=== PATIENT | male | born 1970 | race Caucasian/White ===

== ENCOUNTER 2016-06-05 15:13 | Emergency (ER) | payer OTHER ==
[~2016-06-05] VITALS: Ht 165.1 cm; Wt 63.0 kg
[2016-06-05 15:19] VITALS: BP 122/77; PULSE 70; RESP 16; TEMP 98.3; O2SAT 98
[2016-06-05 16:09] LABS: BLOOD, URINE NEG (NEG); GLUCOSE,URINE NEG (NEG); KETONE, URINE TRACE mg/dL (NEG); NITRITE,URINE NEG (NEG)
[2016-06-05 16:12] LABS: METHOD OF COLLECTION CLEAN CATCH; URINE COLOR YELLOW (YELLW/STRAW)
[2016-06-05] MEDS ORDERED: KETOROLAC TROMETHAMINE 30 MG/ML (IVP) VIAL IV PUSH ONE (16:15)
[2016-06-05] MEDS ORDERED: SODIUM CHLOR 0.9% 1000 ML INJ 1,000 ML IV ONE (16:15)
[2016-06-05] MEDS ORDERED: ONDANSETRON HCL 4 MG/2 ML VIAL IV PUSH ONE (16:15)
[2016-06-05 16:20] VITALS: RESP 16; O2SAT 99
[2016-06-05] MEDS: SODIUM CHLORIDE 0.9% FLUSH 5 ML FLUSH IVF PRN ×2 (16:25→17:01)
[2016-06-05] MEDS ORDERED: MULT1TAB84 PO (16:28)
[2016-06-05 16:34] LABS: AUTOMATED NEUTROPHIL # 11.7 TH/MM3 (1.8-7.7); BASOPHIL % 0.2 % (0.0-2.0); EOSINOPHIL # 0.1 TH/MM3 (0-0.4); EOSINOPHIL % 0.4 % (0.0-4.0); HEMATOCRIT 41.5 % (39.0-51.0); LYMPH % 4.4 % (9.0-44.0); LYMPHOCYTE # 0.6 TH/MM3 (1.0-4.8); MEAN CELL VOLUME 90.3 FL (80.0-100.0); MEAN CORPUSCULAR HEMOGLOBIN 30.2 PG (27.0-34.0); MEAN CORPUSCULAR HGB CONC 33.4 % (32.0-36.0); MONO % 4.5 % (0.0-8.0); NEUT % 90.5 % (16.0-70.0); PLATELET COUNT 225 TH/MM3 (150-450); RED BLOOD COUNT 4.59 MIL/MM3 (4.50-5.90); RED CELL DISTRIBUTION WIDTH 12.8 % (11.6-17.2)
[2016-06-05 16:42] LABS: HEMO FLAGS DIFF FINAL
[2016-06-05 16:49] LABS: POTASSIUM 3.8 MEQ/L (3.5-5.1)
--- NOTE | 2016-06-05 16:51 | RADHPO ---
EXAM DATE/TIME: 06/05/2016 16:27 [place] COMPARISON: No previous studies available for comparison. INDICATIONS : Left flank pain today with nausea and vomiting. ORAL CONTRAST: No oral contrast ingested. RADIATION DOSE: 6.86 CTDIvol (mGy) MEDICAL HISTORY : None SURGICAL HISTORY : Appendectomy. ENCOUNTER: Initial ACUITY: 1 day PAIN SCALE: 9/10 LOCATION: Left flank abdomen TECHNIQUE: Volumetric scanning of the abdomen and pelvis was performed. Using automated exposure control and adjustment of the mA and/or kV according to patient size, radiation dose was kept as low as reasonably achievable to obtain optimal diagnostic quality images. FINDINGS: LOWER LUNGS: The visualized lower lungs are clear. LIVER: Homogeneous density without lesion. There is no dilation of the biliary tree. No calcifi ed gallstones. Gallbladder seen is a luminal structure without wall thickening SPLEEN: Normal size without lesion. PANCREAS: Within normal limits. KIDNEYS: Normal in size and shape. There is no mass. There is a 6 x 3 mm calculus in the left ur eter at level of L3-4 with secondary obstructive uropathy, hydroureter and hydronephrosis. ADRENAL GLANDS: Within normal limits. VASCULAR: There is no aortic aneurysm. BOWEL/MESENTERY: The stomach, small bowel, and colon demonstrate no acute abnormality. There is no free intraperitoneal air or fluid. ABDOMINAL WALL: Within normal limits. RETROPERITONEUM: There is no lymphadenopathy. BLADDER: No wall thickening or mass. REPRODUCTIVE: Within normal limits. INGUINAL: There is no lymphadenopathy or hernia. MUSCULOSKELETAL: Within normal limits for patient age. CONCLUSION: 6x3 mm left ureteral calculus level L3-4 with secondary hydronephrosis and ureter Edi Almanza MD on June 05, 2016 at 16:46 Board Certified Radiologist. This report was verified electronically.
[2016-06-05 16:52] LABS: BICARBONATE 22.9 MEQ/L (21.0-32.0)
[2016-06-05] MEDS ORDERED: MORPHINE SULFATE 8 MG/ML INJ IV PUSH ONE (17:00)
[2016-06-05 17:15] VITALS: BP 108/57; PULSE 90; RESP 16; O2SAT 98
[2016-06-05 17:21] LABS: RBC, URINE 0-3 /hpf (0-3); SQUAMOUS EPITHELIAL CELL URINE 0-5 /hpf (0-5)
[2016-06-05 17:23] LABS: CALCIUM OXALATE CRYSTALS,URINE MANY /hpf; COMMENT (UR) CULT NOT INDICATED; CULTURE IF INDICATED CULT NOT INDICATED
[2016-06-05] MEDS ORDERED: PERC5TAB12 PO (17:26)
[2016-06-05] MEDS ORDERED: TAMS5CAP PO (17:26)
--- NOTE | 2016-06-05 17:26 | PD ---
HPI Chief Complaint: Flank/Kidney Pain Time Seen by Provider: 15:50 Travel History International Travel<30 days: No Contact w/Intl Traveler<30days: No Traveled to known affect area: No History of Present Illness HPI 46yo M with no significant PMH presents to the ED with c/o left flank pain since 10am today. Pt is severe, intermittent and worst with movement. +Nausea and vomiting. States pain is sharp and worst with movement. Denies any fever, chest pain, sob, penile discharge or rash or testicular pain. PFSH Past Medical History Medical History: Denies Significant Hx Tetanus Vaccination: < 5 Years Influenza Vaccination: No Past Surgical History Appendectomy: Yes Social History Alcohol Use: No Tobacco Use: No Substance Use: No Allergies-Medications (Allergen,Severity, Reaction): Coded Allergies: No Known Allergies (Verified , 06/05/16) Reported Meds & Prescriptions Reported Meds & Active Scripts Active Reported Multivitamin Adults (Multiple Vitamins W/ Minerals) 1 Tab 1 Tab PO DAILY Review of Systems Except as stated in HPI: all other systems reviewed are Neg Physical Exam Narrative GENERAL: 46yo M in moderate distress. SKIN: Warm and dry. HEAD: Atraumatic. Normocephalic. EYES: Pupils equal and round. No scleral icterus. No injection or drainage. ENT: No nasal bleeding or discharge. Mucous membranes pink and moist. NECK: Trachea midline. No JVD. CARDIOVASCULAR: Regular rate and rhythm. No murmur appreciated. RESPIRATORY: No accessory muscle use. Clear to auscultation. Breath sounds equal bilaterally. GASTROINTESTINAL: Abdomen soft, non-tender, nondistended. No rebound tenderness or guarding. : No testicular ttp. No penile discharge. BACK: +TTP left flank. MUSCULOSKELETAL: No obvious deformities. No clubbing. No cyanosis. No edema. NEUROLOGICAL: Awake and alert. No obvious cranial nerve deficits. Motor grossly within normal limits. Normal speech. PSYCHIATRIC: Appropriate mood and affect; insight and judgment normal. Data Data Last Documented VS Vital Signs Date Time Temp Pulse Resp B/P Pulse Ox O2 Delivery O2 Flow Rate FiO2 06/05/16 17:00 16 06/05/16 16:20 99 Room Air 06/05/16 16:00 75 06/05/16 15:19 98.3 122/77 Orders Urinalysis - C+S If Indicated (06/05/16 15:17) Basic Metabolic Panel (Bmp) (06/05/16 16:13) Complete Blood Count With Diff (06/05/16 16:13) Lipase (06/05/16 16:13) Ct Abd/Pel W/O Iv Contrast (06/05/16 16:13) Iv Access Insert/Monitor (06/05/16 16:13) Ecg Monitoring (06/05/16 16:13) Oximetry (06/05/16 16:13) Sodium Chloride 0.9% Flush (Ns Flush) (06/05/16 16:15) Ondansetron Inj (Zofran Inj) (06/05/16 16:15) Sodium Chlor 0.9% 1000 Ml Inj (Ns 1000 M (06/05/16 16:15) Ketorolac Inj (Toradol Inj) (06/05/16 16:15) Morphine Inj (Morphine Inj) (06/05/16 17:00) Labs Laboratory Tests Test 06/05/16 06/05/16 15:15 16:05 Urine pH 6.0 Urine Protein NEG mg/dL Urine Glucose (UA) NEG mg/dL Urine Ketones TRACE mg/dL Urine Occult Blood NEG Urine Nitrite NEG Urine Bilirubin NEG Urine Leukocyte Esterase NEG White Blood Count 13.0 TH/MM3 Red Blood Count 4.59 MIL/MM3 Hemoglobin 13.9 GM/DL Hematocrit 41.5 % Mean Corpuscular Volume 90.3 FL Mean Corpuscular Hemoglobin 30.2 PG Mean Corpuscular Hemoglobin 33.4 % Concent Red Cell Distribution Width 12.8 % Platelet Count 225 TH/MM3 Mean Platelet Volume 10.1 FL Neutrophils (%) (Auto) 90.5 % Lymphocytes (%) (Auto) 4.4 % Monocytes (%) (Auto) 4.5 % Eosinophils (%) (Auto) 0.4 % Basophils (%) (Auto) 0.2 % Neutrophils # (Auto) 11.7 TH/MM3 Lymphocytes # (Auto) 0.6 TH/MM3 Monocytes # (Auto) 0.6 TH/MM3 Eosinophils # (Auto) 0.1 TH/MM3 Basophils # (Auto) 0.0 TH/MM3 CBC Comment DIFF FINAL Differential Comment Sodium Level 139 MEQ/L Potassium Level 3.8 MEQ/L Chloride Level 104 MEQ/L Carbon Dioxide Level 22.9 MEQ/L Anion Gap 12 MEQ/L Blood Urea Nitrogen 22 MG/DL Creatinine 1.20 MG/DL Estimat Glomerular Filtration 65 ML/MIN Rate Random Glucose 134 MG/DL Calcium Level 8.8 MG/DL Lipase 176 U/L MDM Medical Decision Making Medical Screen Exam Complete: Yes Emergency Medical Condition: Yes Interpretation(s) Laboratory Tests Test 06/05/16 06/05/16 15:15 16:05 Urine pH 6.0 (5.0-8.5) Urine Protein NEG mg/dL (NEG-TRACE) Urine Glucose (UA) NEG mg/dL (NEG) Urine Ketones TRACE mg/dL (NEG) Urine Occult Blood NEG (NEG) Urine Nitrite NEG (NEG) Urine Bilirubin NEG (NEG) Urine Leukocyte Esterase NEG (NEG) White Blood Count 13.0 TH/MM3 (4.0-11.0) Red Blood Count 4.59 MIL/MM3 (4.50-5.90) Hemoglobin 13.9 GM/DL (13.0-17.0) Hematocrit 41.5 % (39.0-51.0) Mean Corpuscular Volume 90.3 FL (80.0-100.0) Mean Corpuscular Hemoglobin 30.2 PG (27.0-34.0) Mean Corpuscular Hemoglobin 33.4 % Concent (32.0-36.0) Red Cell Distribution Width 12.8 % (11.6-17.2) Platelet Count 225 TH/MM3 (150-450) Mean Platelet Volume 10.1 FL (7.0-11.0) Neutrophils (%) (Auto) 90.5 % (16.0-70.0) Lymphocytes (%) (Auto) 4.4 % (9.0-44.0) Monocytes (%) (Auto) 4.5 % (0.0-8.0) Eosinophils (%) (Auto) 0.4 % (0.0-4.0) Basophils (%) (Auto) 0.2 % (0.0-2.0) Neutrophils # (Auto) 11.7 TH/MM3 (1.8-7.7) Lymphocytes # (Auto) 0.6 TH/MM3 (1.0-4.8) Monocytes # (Auto) 0.6 TH/MM3 (0-0.9) Eosinophils # (Auto) 0.1 TH/MM3 (0-0.4) Basophils # (Auto) 0.0 TH/MM3 (0-0.2) CBC Comment DIFF FINAL Differential Comment Sodium Level 139 MEQ/L (136-145) Potassium Level 3.8 MEQ/L (3.5-5.1) Chloride Level 104 MEQ/L (98-107) Carbon Dioxide Level 22.9 MEQ/L (21.0-32.0) Anion Gap 12 MEQ/L (5-15) Blood Urea Nitrogen 22 MG/DL (7-18) Creatinine 1.20 MG/DL (0.60-1.30) Estimat Glomerular Filtration 65 ML/MIN (>89) Rate Random Glucose 134 MG/DL (74-106) Calcium Level 8.8 MG/DL (8.5-10.1) Lipase 176 U/L (73-393) Differential Diagnosis Nephrolithiasis vs. pyelonephritis Narrative Course 46yo M with symptoms consistent with nephrolithiasis. Labs reviewed, mild leukocytosis at 13.0. BUN mildly elevated at 22. Creatinine normal at 1.20. UA showed trace ketone. Negative leukocyte or nitrite. CTa/p showed 6x3 mm left ureteral calculus level L3-L4 with secondary hydronephrosis and ureter. Pt given zofran, IVF NS and toradol 30mg which didnt help with pain. Pt then given morphine 6mg IV and pain was improved. Discussed with urologist production planning supervisor Dr. Randhawa and he recommended to discharge with flomax and have the patient call his office tomorrow. Pt has not vomited since I saw him. VS wnl. Pt is nontoxic appearing and agreed with plan. Diagnosis Primary Impression: Nephrolithiasis Referrals: Merlin Randhawa MD 1 day 6mm calculus left ureter Patient Instructions: General Instructions Departure Forms: Tests/Procedures Additional Instructions: Please call Dr. Randhawa's office tomorrow morning to follow up with him in his office. Take medication as instructed. Return to the ED if symptoms worsen. Med/Other Pt SpecificInfo: Prescription(s) given Scripts Oxycodone-Acetaminophen (Percocet)5-325 mg Tab1 Tab PO Q6H PRN (PAIN) #6 TAB Ref 0 Prov:Emerald Landon DO 06/05/16 Tamsulosin (Flomax)0.4 Mg Cap0.4 Mg PO HS 5 Days Ref 0 Prov:Emerald Landon DO 06/05/16 Disposition: 01 DISCHARGE HOME Condition: Stable Emerald Landon DO Jun 05, 2016 17:26
[2016-06-05 17:28] VITALS: RESP 16
[2016-06-05 17:51] VITALS: BP 112/69
[2016-06-06] MEDS ORDERED: TAMS0.4C4 PO (13:42)
[2016-06-06] MEDS ORDERED: PERC5TAB12 PO (13:42)
== END 2016-06-05 18:17 | disposition home or self-care (01) ==
LOC: PHED 15:13
DX: N13.2 Hydronephrosis with renal and ureteral calculous obstruction (principal); R11.2 Nausea with vomiting, unspecified
CPT/HCPCS: 74176; 80048; 81001; 83690; 85025; 96361; 96374; 96375; 99284; J1885; J2270; J2405; J7030